=== PATIENT | male | born 1985 | race Caucasian/White ===

== ENCOUNTER 2021-07-19 13:24 | Emergency (ER) | payer BC, OTHER ==
[2021-07-19] MEDS ORDERED: Morphine 4 MG/ML VIAL ONE (14:55)
== END 2021-07-19 16:40 | disposition home or self-care (01) ==
LOC: ERS 13:24
DX: S52.601A Unspecified fracture of lower end of right ulna, initial encounter for closed fracture (principal); Y00.XXXA Assault by blunt object, initial encounter
CPT/HCPCS: 29125; 70450; 72125; 96372; J2270